=== PATIENT | female | born 1970 | race Hispanic/Latino ===

== ENCOUNTER 2023-08-05 18:55 | Outpatient (CLI) | payer BC | END 2023-08-05 18:56 | disposition home or self-care (01) | LOC: CSHRAD 18:55 | PROVIDERS: ATTEND Student in an Organized Health Care Education/Training Program | DX: M25.552 Pain in left hip (principal); M54.50 Low back pain, unspecified; M47.817 Spondylosis without myelopathy or radiculopathy, lumbosacral region; M46.1 Sacroiliitis, not elsewhere classified | CPT/HCPCS: 72100 ==

== ENCOUNTER 2024-01-21 12:05 | Emergency (ER) | payer BC, SELFPAY | END 2024-01-21 13:17 | disposition home or self-care (01) | LOC: CSHERS 12:05 | DX: L03.211 Cellulitis of face (principal) | CPT/HCPCS: 99283 ==